=== PATIENT | female | born 1965 | race African-American/Black ===

== ENCOUNTER 2017-04-07 14:06 | Inpatient (IN) | payer MEDICAID ==
[~2017-04-07] VITALS: Ht 160 cm; Wt 98.9 kg
[2017-04-07] MEDS ORDERED: ETAN25DI2 SQ (14:25)
[2017-04-07] MEDS ORDERED: HYDR-3280 PO (14:25)
[2017-04-07] MEDS ORDERED: GLIP10TA10 PO (14:25)
[2017-04-07] MEDS ORDERED: ASPI-1159 PO (14:25)
[2017-04-07] MEDS ORDERED: HYDR25TA PO (14:25)
[2017-04-07] MEDS ORDERED: LOSA50TA20 PO (14:25)
[2017-04-07] MEDS ORDERED: NITROGLYCERIN OINT 1GM/INCH UDPKT TD STA (14:46)
[2017-04-07] MEDS ORDERED: MORPHINE SULFATE 4 MG/ML CPJ (NOT FOR IM USE) IV STA (14:46)
[2017-04-07] MEDS ORDERED: ASPIRIN 325MG EC TABLET PO ONE (15:00)
[2017-04-07 15:31] LABS: CHLORIDE 103 mEq/L (98-107); EOSINOPHILS % 3.8 % (0.0-5.0); LYMPHOCYTES % 35.5 % (20.0-50.0); MEAN CORPUSCULAR HEMOGLOBIN 25.2 pg (28.0-32.0); MEAN CORPUSCULAR VOLUME 78.1 fL (81.0-99.0); MEAN PLATELET VOLUME 8.4 fl (7.4-10.4); MONOCYTES % 4.5 % (2.0-8.0); NEUTROPHILS % 55.2 % (40.0-76.0); PLATELET 283 x1000/uL (130-400); RED BLOOD CELL COUNT 4.74 mill/uL (4.2-5.4); RED CELL DISTRIBUTION WIDTH 15.8 % (11.6-14.6)
[2017-04-07 15:36] LABS: CARBON DIOXIDE 24 mEq/L (21-32)
[2017-04-07 15:42] LABS: TROPONIN I < 0.02 ng/mL (0.00-0.04)
[2017-04-07] MEDS ORDERED: NITROGLYCERIN 0.4MG TABLET SL SL PRN (17:45)
[2017-04-07] MEDS ORDERED: ONDANSETRON HCL 4MG/2ML VIAL IV PRN (17:45)
[2017-04-07] MEDS ORDERED: LORAZEPAM 2MG/ML CPJ IV PRN (17:45)
[2017-04-07] MEDS ORDERED: DIPHENHYDRAMINE 50MG/ML VIAL IV PRN (17:45)
[2017-04-07] MEDS ORDERED: MAGNESIUM/ALUMINUM HYDROXIDE/SIMETHICONE 30ML UDC PO PRN (17:45)
[2017-04-07] MEDS ORDERED: CLONIDINE 0.1MG TABLET PO PRN (17:45)
[2017-04-07] MEDS ORDERED: IPRATROPIUM/ALBUTEROL 0.5-3(2.5)MG/3ML NEB INH PRN (17:45)
[2017-04-07] MEDS ORDERED: GUAIFENESIN 200MG/10ML SUGAR FREE UDC PO PRN (17:45)
[2017-04-07] MEDS ORDERED: DOCUSATE SODIUM 100MG CAPSULE PO PRN (17:45)
[2017-04-07] MEDS ORDERED: ACETAMINOPHEN 325MG TABLET PO PRN (17:45)
[2017-04-07] MEDS ORDERED: KETOROLAC 15MG/ML VIAL IV PRN (18:00)
[2017-04-07 20:00] VITALS: BP 114/85
[2017-04-07] MEDS ORDERED: NA PHOS,M-B/NA PHOS,DI-BA ENEMA 118ML PR PRN (20:00)
[2017-04-07] MEDS ORDERED: ZOLPIDEM TARTRATE 5MG TABLET PO PRN (20:30)
[2017-04-07 21:15] VITALS: BP 114/85
[2017-04-07 22:00] VITALS: BP 114/85
[2017-04-07] MEDS ORDERED: DEXTROSE 50% WATER 50ML SYRINGE IV PRN (22:00)
[2017-04-07] MEDS: SUCRALFATE 1 G/10 ML UDC PO SCH (22:05)
[2017-04-07] MEDS: FAMOTIDINE 20MG/2ML VIAL IV SCH (22:06)
[2017-04-07] MEDS: INSULIN LISPRO 100 UNITS/ML SUBCUT SCH (22:08)
[2017-04-07] MEDS: BLOOD SUGAR DIAGNOSTIC STRIP TEST SCH (22:12)
[2017-04-07] MEDS: ENOXAPARIN 30MG/0.3ML SYR SUBCUT SCH (22:28)
[2017-04-08] VITALS: BP 90/53
[2017-04-08] MEDS ORDERED: HYDR-522 PO (00:24)
[2017-04-08] MEDS ORDERED: HYDR-2510 PO (00:30)
[2017-04-08] MEDS ORDERED: HYDR25TA PO (00:30)
[2017-04-08] MEDS ORDERED: LOSA100T14 PO (00:30)
[2017-04-08] MEDS ORDERED: GLIP5TAB12 PO (00:36)
[2017-04-08 00:50] LABS: *AMPHETAMINES SCREEN URINE NEGATIVE (NEGATIVE); *BARBITURATES SCREEN URINE NEGATIVE (NEGATIVE); *BENZODIAZEPINES SCREEN URINE NEGATIVE (NEGATIVE); *COCAINE SCREEN URINE NEGATIVE (NEGATIVE); CANNABINOID URINE SCREEN NEGATIVE (NEGATIVE); METHADONE URINE SCREEN NEGATIVE (NEGATIVE); OPIATES URINE SCREEN NEGATIVE (NEGATIVE); PHENCYCLIDINE URINE SCREEN NEGATIVE (NEGATIVE)
[2017-04-08 04:00] VITALS: BP 98/50
[2017-04-08] MEDS: BLOOD SUGAR DIAGNOSTIC STRIP TEST SCH (06:58)
[2017-04-08] MEDS: SUCRALFATE 1 G/10 ML UDC PO SCH (06:59)
[2017-04-08] MEDS: INSULIN LISPRO 100 UNITS/ML SUBCUT SCH (07:04)
[2017-04-08 07:36] LABS: CREATINE KINASE 65 IU/L (26-192); CREATINE KINASE MB FRACTION < 0.5 ng/mL (0.5-3.6); TROPONIN I < 0.02 ng/mL (0.00-0.04)
[2017-04-08 08:00] VITALS: BP 106/69
[2017-04-08] MEDS ORDERED: ASPIRIN 325MG EC TABLET PO SCH (09:00)
[2017-04-08] MEDS: ENOXAPARIN 30MG/0.3ML SYR SUBCUT SCH (09:24)
[2017-04-08] MEDS: FAMOTIDINE 20MG/2ML VIAL IV SCH (09:24)
[2017-04-08 12:00] VITALS: BP 107/72
[2017-04-08 12:11] VITALS: BP 107/72
== END 2017-04-08 12:37 | disposition home or self-care (01) | DRG 243 ==
LOC: ER 15:02 → 8WST 15:55 → ENRESERV 19:06 → EDBEDREQ 21:08
PROVIDERS: ADMIT Internal Medicine; ATTEND Internal Medicine
DX: K21.9 Gastro-esophageal reflux disease without esophagitis (principal); E11.65 Type 2 diabetes mellitus with hyperglycemia; I10 Essential (primary) hypertension; E44.1 Mild protein-calorie malnutrition; Z90.49 Acquired absence of other specified parts of digestive tract; Z90.710 Acquired absence of both cervix and uterus; Z79.82 Long term (current) use of aspirin; Z79.899 Other long term (current) drug therapy; E66.9 Obesity, unspecified; Z68.38 Body mass index [BMI] 38.0-38.9, adult
CPT/HCPCS: 36415; 71010; 80053; 80061; 80305; 82550; 82553; 82962; 83036; 83690; 84484; 85025; 93005; 96374; 99285; J1650; J1815; J2270; J3490

== ENCOUNTER 2018-12-07 18:29 | Emergency (ER) | payer MEDICAID ==
[~2018-12-07] VITALS: Ht 160 cm; Wt 100.0 kg
[~2018-12-07 18:29] MED LIST: ETAN25DI2 SQ; GLIP5TAB12 PO; HYDR-2510 PO; HYDR-522 PO; HYDR25TA PO; LOSA100T14 PO
[2018-12-07] MEDS ORDERED: ONDANSETRON HCL 4MG/2ML INJ IV STA (18:58)
[2018-12-07] MEDS ORDERED: MORPHINE SULFATE 4 MG/ML CPJ (NOT FOR IM USE) IV STA (18:58)
[2018-12-07 19:21] LABS: BASOPHILS % 0.7 % (0.0-2.0); EOSINOPHILS % 3.8 % (0.0-5.0); HEMATOCRIT. 36.3 % (36.0-48.0); LYMPHOCYTES % 32.8 % (20.0-50.0); MEAN CORPUSCULAR HEMOGLOBIN 26.7 pg (28.0-32.0); MEAN CORPUSCULAR VOLUME 80.3 fL (81.0-99.0); MEAN PLATELET VOLUME 8.3 fl (7.4-10.4); MONOCYTES % 6.8 % (2.0-8.0); NEUTROPHILS % 55.9 % (40.0-76.0); PLATELET 258 x1000/uL (130-400); RED BLOOD CELL COUNT 4.51 mill/uL (4.2-5.4); RED CELL DISTRIBUTION WIDTH 15.7 % (11.6-14.6)
[2018-12-07 19:26] LABS: CHLORIDE 103 mEq/L (98-107)
[2018-12-07 19:53] LABS: CLARITY URINE CLOUDY (CLEAR); COLOR URINE YELLOW (YELLOW); KETONES URINE NEGATIVE (NEGATIVE); LEUKOCYTE ESTERASE URINE NEGATIVE (NEGATIVE); NITRITE URINE NEGATIVE (NEGATIVE); OCCULT BLOOD URINE NEGATIVE (NEGATIVE); PROTEIN URINE NEGATIVE (NEGATIVE); SPECIFIC GRAVITY URINE 1.024 (1.005-1.030); UROBILINOGEN URINE 0.2 E.U./dL (0.2-1.0)
[2018-12-07 20:02] LABS: *AMPHETAMINES SCREEN URINE NEGATIVE (NEGATIVE); *BARBITURATES SCREEN URINE NEGATIVE (NEGATIVE); *BENZODIAZEPINES SCREEN URINE NEGATIVE (NEGATIVE)
[2018-12-07 20:03] LABS: *COCAINE SCREEN URINE NEGATIVE (NEGATIVE); METHADONE URINE SCREEN NEGATIVE (NEGATIVE); OPIATES URINE SCREEN NEGATIVE (NEGATIVE); PHENCYCLIDINE URINE SCREEN NEGATIVE (NEGATIVE)
[2018-12-07 20:04] LABS: CANNABINOID URINE SCREEN NEGATIVE (NEGATIVE)
[2018-12-07 21:45] VITALS: BP 131/79
== END 2018-12-07 21:45 | disposition home or self-care (01) ==
LOC: ER 18:29
DX: R16.2 Hepatomegaly with splenomegaly, not elsewhere classified (principal); K76.0 Fatty (change of) liver, not elsewhere classified; B37.41 Candidal cystitis and urethritis; E11.65 Type 2 diabetes mellitus with hyperglycemia; I10 Essential (primary) hypertension; Z90.49 Acquired absence of other specified parts of digestive tract; Z90.710 Acquired absence of both cervix and uterus; Z79.84 Long term (current) use of oral hypoglycemic drugs
CPT/HCPCS: 36415; 74176; 80053; 80305; 81003; 81025; 85025; 96374; 96375; 99284; J2270; J2405; Z7610

== ENCOUNTER 2019-09-13 12:54 | Emergency (ER) | payer BC, MEDICARE ==
[~2019-09-13] VITALS: Ht 160 cm; Wt 99.7 kg
[~2019-09-13 12:54] MED LIST changes: -LOSA100T14 PO; +LOSA100T32 PO
[2019-09-13] MEDS ORDERED: KETOROLAC 30MG/ML VIAL IM ONE (15:00)
[2019-09-13 16:09] LABS: CLARITY URINE CLEAR (CLEAR); COLOR URINE YELLOW (YELLOW); KETONES URINE TRACE (NEGATIVE); LEUKOCYTE ESTERASE URINE 1+ (NEGATIVE); NITRITE URINE POSITIVE (NEGATIVE); OCCULT BLOOD URINE NEGATIVE (NEGATIVE); PROTEIN URINE NEGATIVE (NEGATIVE); SPECIFIC GRAVITY URINE 1.019 (1.005-1.030)
[2019-09-13 16:15] VITALS: BP 157/85
== END 2019-09-13 17:15 | disposition home or self-care (01) ==
LOC: ER 12:54
DX: N39.0 Urinary tract infection, site not specified (principal); M54.5 Low back pain; E11.9 Type 2 diabetes mellitus without complications; I10 Essential (primary) hypertension; M19.90 Unspecified osteoarthritis, unspecified site; Z90.710 Acquired absence of both cervix and uterus; Z90.49 Acquired absence of other specified parts of digestive tract
CPT/HCPCS: 71045; 81003; 96372; 99284; J1885

== ENCOUNTER 2021-12-28 23:09 | Emergency (ER) | payer BC, OTHER ==
[~2021-12-28] VITALS: Ht 160 cm; Wt 92.4 kg
[~2021-12-28 23:09] MED LIST changes: +CIPR500T5 MT; -HYDR-2510 PO; -LOSA100T32 PO; +METR500T MT; +OMEP40CA20 MT
[2021-12-28 23:49] LABS: BASOPHILS % 0.6 % (0.0-2.0); EOSINOPHILS % 2.8 % (0.0-5.0); HEMATOCRIT. 33.5 % (36.0-48.0); HEMOGLOBIN. 10.3 g/dL (12.0-16.0); LYMPHOCYTES % 39.3 % (20.0-50.0); MEAN CORPUSCULAR HEMOGLOBIN 24.3 pg (28.0-32.0); MEAN CORPUSCULAR VOLUME 79.1 fL (81.0-99.0); MEAN PLATELET VOLUME 7.4 fl (7.4-10.4); MONOCYTES % 6.1 % (2.0-8.0); NEUTROPHILS % 51.2 % (40.0-76.0); PLATELET 322 x1000/uL (130-400); RED BLOOD CELL COUNT 4.24 mill/uL (4.2-5.4); RED CELL DISTRIBUTION WIDTH 16.1 % (11.6-14.6)
[2021-12-28 23:56] LABS: CHLORIDE 107 mEq/L (98-107)
[2021-12-29] MEDS ORDERED: HYDROCODONE/ACETAMINOPHEN 5/325MG TABLET PO STA (01:57)
[2021-12-29 03:32] LABS: CLARITY URINE CLOUDY (CLEAR); COLOR URINE YELLOW (YELLOW); KETONES URINE TRACE (NEGATIVE); LEUKOCYTE ESTERASE URINE 2+ (NEGATIVE); NITRITE URINE NEGATIVE (NEGATIVE); OCCULT BLOOD URINE NEGATIVE (NEGATIVE); PH URINE 5.5 (4.5-8.0); PROTEIN URINE 1+ (NEGATIVE); SPECIFIC GRAVITY URINE 1.027 (1.005-1.030)
[2021-12-29] MEDS ORDERED: HYDR-4001 PO (03:46)
[2021-12-29] MEDS ORDERED: CIPR-263 PO (03:46)
[2021-12-29] MEDS ORDERED: PYR200 PO (03:46)
[2021-12-29 04:01] VITALS: BP 125/85
== END 2021-12-29 04:00 | disposition home or self-care (01) ==
LOC: ER 23:09
DX: N39.0 Urinary tract infection, site not specified (principal); I10 Essential (primary) hypertension; E11.9 Type 2 diabetes mellitus without complications; Z79.899 Other long term (current) drug therapy; Z90.49 Acquired absence of other specified parts of digestive tract; Z98.890 Other specified postprocedural states
CPT/HCPCS: 36415; 76770; 80053; 81001; 85025; 99284

== ENCOUNTER 2023-10-27 01:29 | Emergency (ER) | payer BC, MEDICAID, OTHER ==
[~2023-10-27] VITALS: Ht 160 cm; Wt 89.6 kg
[~2023-10-27 01:29] MED LIST changes: +CIPR-263 PO; -GLIP5TAB12 PO; +GLIP5TAB22 PO; +HYDR-4001 PO; +PYR200 PO
[2023-10-27 01:39] VITALS: TEMP 97.6; O2SAT 100
[2023-10-27 01:58] LABS: CLARITY URINE CLEAR (CLEAR); COLOR URINE YELLOW (YELLOW); GLUCOSE URINE NEGATIVE (NEGATIVE); KETONES URINE NEGATIVE (NEGATIVE); LEUKOCYTE ESTERASE URINE 1+ (NEGATIVE); NITRITE URINE NEGATIVE (NEGATIVE); OCCULT BLOOD URINE NEGATIVE (NEGATIVE); PROTEIN URINE NEGATIVE (NEGATIVE); SPECIFIC GRAVITY URINE 1.014 (1.005-1.030)
[2023-10-27 02:07] LABS: BASOPHILS % 1.2 % (0.0-2.0); EOSINOPHILS % 5.1 % (0.0-5.0); HEMATOCRIT. 38.6 % (36.0-48.0); HEMOGLOBIN. 12.3 g/dL (12.0-16.0); MEAN CORPUSCULAR HEMOGLOBIN 26.8 pg (28.0-32.0); MEAN CORPUSCULAR HGB CONC 31.9 g/dL (31.0-37.0); MEAN CORPUSCULAR VOLUME 83.9 fL (81.0-99.0); MEAN PLATELET VOLUME 8.2 fl (7.4-10.4); MONOCYTES % 10.9 % (2.0-8.0); NEUTROPHILS % 55.8 % (40.0-76.0); PLATELET 191 x1000/uL (130-400); RED CELL DISTRIBUTION WIDTH 17.1 % (11.6-14.6); WHITE BLOOD COUNT 6.3 x1000/uL (4.5-11.0)
[2023-10-27 02:20] LABS: ALANINE AMINOTRANSFERASE 22 IU/L (10-49); ALBUMIN 4.2 g/dL (3.2-4.8); ASPARTATE AMINOTRANSFERASE 24 IU/L (<34); BILIRUBIN TOTAL 0.5 mg/dL (0.1-1.0); CALCIUM 9.3 mg/dL (8.7-10.4); CARBON DIOXIDE 22 mEq/L (21-32); CHLORIDE 107 mEq/L (98-107); GLUCOSE 225 mg/dL (70-105); POTASSIUM 3.9 mEq/L (3.5-5.1); PROTEIN TOTAL 8.1 g/dL (6.0-8.3); SODIUM 136 mEq/L (136-145); TROPONIN I HIGH SENSITIVITY 6 ng/L (3.0-34); UREA NITROGEN BLOOD 17 mg/dL (9-23)
[2023-10-27 02:51] LABS: SQUAMOUS EPITHELIAL CELL URINE FEW /lpf (RARE/1+)
[2023-10-27 02:52] LABS: BACTERIA URINE NONE SEEN; RBC URINE 0-2 /hpf (0-2); WBC URINE 0-2 /hpf (0-2)
[2023-10-27] MEDS ORDERED: GABA300C MT (04:06)
[2023-10-27] MEDS ORDERED: EMPA10TA MT (04:18)
[2023-10-27 04:21] VITALS: BP 140/90; PULSE 89; RESP 16
== END 2023-10-27 04:24 | disposition home or self-care (01) ==
LOC: ER 01:47
DX: E11.40 Type 2 diabetes mellitus with diabetic neuropathy, unspecified (principal); R07.9 Chest pain, unspecified; E11.9 Type 2 diabetes mellitus without complications; I10 Essential (primary) hypertension; Z98.890 Other specified postprocedural states; Z90.710 Acquired absence of both cervix and uterus; Z90.49 Acquired absence of other specified parts of digestive tract
CPT/HCPCS: 36415; 71045; 80053; 81003; 84484; 85025; 93005; 99285